=== PATIENT | female | born 1940 ===

== ENCOUNTER 2022-02-06 11:29 | Inpatient (IN) | payer MEDICARE ==
[2022-02-06] MEDS ORDERED: PROAIR HFA8.5 GM INH (12:12)
[2022-02-06] MEDS ORDERED: PERCOCET 7.5-31 EACH PO (12:13)
[2022-02-06] MEDS ORDERED: Coumadin5 MG PO (12:16)
[2022-02-06] MEDS ORDERED: LOPRESSOR50 M1 PO (12:17)
[2022-02-06] MEDS ORDERED: CO Q10200 MG PO (12:18)
[2022-02-06] MEDS ORDERED: CLARITIN10 MG PO (12:19)
[2022-02-06] MEDS ORDERED: D3-200050 MCG PO (12:19)
[2022-02-06] MEDS ORDERED: ENDOCET 5-3251 EACH PO (12:20)
[2022-02-06] MEDS ORDERED: NORVASC5 MG PO (19:00)
[2022-02-06] MEDS ORDERED: CEPHALEXIN500 M1 PO (19:01)
[2022-02-07] MEDS ORDERED: TRAZODONE50 MG PO (02:18)
[2022-02-18] MEDS ORDERED: EXELON1 EAC2 TD (12:53)
[2022-02-18] MEDS ORDERED: NAMENDA5 M1 PO (12:55)
[2022-02-18] MEDS ORDERED: REMERON SOLTAB15 MG PO (12:55)
[2022-02-18] MEDS ORDERED: RISPERDAL0.5 MG PO (12:56)
[2022-02-18] MEDS ORDERED: CATAPRES-TTS 11 EACH T (15:25)
[2022-02-18] MEDS ORDERED: ATIVAN2 MG/1 ML IM (15:28)
[2022-02-18] MEDS ORDERED: ATIVAN1 MG PO (15:30)
[2022-02-18] MEDS ORDERED: GEODON20 MG/1 ML IM (15:31)
[2022-02-18] MEDS ORDERED: MILK OF MA400 MG/5 M PO (15:31)
[2022-02-22] MEDS ORDERED: PERCOCET 7.5-31 EACH PO (12:07)
[2022-02-22] MEDS ORDERED: ATIVAN1 MG PO (12:07)
[2022-02-22] MEDS ORDERED: AMLODIPINE BESYL5 MG PO (12:07)
== END 2022-02-06 20:49 | disposition short-term general hospital (02) | DRG 885 ==
LOC: 3N 11:29
PROVIDERS: ADMIT Psychiatry & Neurology Psychiatry; ATTEND Psychiatry & Neurology Psychiatry
DX: F23 Brief psychotic disorder (principal); I48.20 Chronic atrial fibrillation, unspecified; M19.90 Unspecified osteoarthritis, unspecified site; J45.909 Unspecified asthma, uncomplicated; G47.33 Obstructive sleep apnea (adult) (pediatric); I10 Essential (primary) hypertension; K21.9 Gastro-esophageal reflux disease without esophagitis; Z96.651 Presence of right artificial knee joint; I16.0 Hypertensive urgency; K57.90 Diverticulosis of intestine, part unspecified, without perforation or abscess without bleeding; M54.41 Lumbago with sciatica, right side; Z90.710 Acquired absence of both cervix and uterus; Z88.6 Allergy status to analgesic agent; Z88.0 Allergy status to penicillin; Z88.8 Allergy status to other drugs, medicaments and biological substances

== ENCOUNTER 2022-02-06 20:40 | Inpatient (IN) | payer MEDICARE ==
[~2022-02-06] VITALS: Ht 165.1 cm; Wt 69.6 kg
[~2022-02-06 20:40] MED LIST: CEPHALEXIN500 M1 PO; CLARITIN10 MG PO; CO Q10200 MG PO; Coumadin5 MG PO; D3-200050 MCG PO; ENDOCET 5-3251 EACH PO; LOPRESSOR50 M1 PO; NORVASC5 MG PO; PERCOCET 7.5-31 EACH PO; PROAIR HFA8.5 GM INH
[2022-02-06 21:00] VITALS: BP 182/64
[2022-02-07] VITALS: BP 158/57
[2022-02-07 01:43] LABS: BASO # 0.1 10*3/uL (0.0-0.1); BASO % 0.5 % (0.0-1.0); EOS # 0.1 10*3/uL (0.0-0.4); EOS % 0.6 % (1.0-4.0); HEMATOCRIT 38.6 % (37.0-47.0); LYMPH # 1.8 10*3/uL (1.3-4.4); LYMPH % 16.8 % (27.0-41.0); MEAN CELL VOLUME 93.9 fl (81.0-99.0); MEAN CORPUSCULAR HGB 30.9 pg (27.0-31.0); MEAN CORPUSCULAR HGB CONC 32.9 g/dl (33.0-37.0); MEAN PLATELET VOLUME 9.8 fl (9.6-12.3); NEUT # 7.9 10*3/uL (2.3-7.9); NEUT % 72.7 % (47.0-73.0); PLATELET COUNT AUTOMATED 293 10*3/uL (130-400); RED BLOOD COUNT 4.11 10*6/uL (4.10-5.10); RED CELL DISTRI WIDTH 13.5 % (0-14.5); WHITE BLOOD COUNT 10.8 10*3/uL (4.8-10.8)
[2022-02-07 02:00] LABS: ALKALINE PHOSPHATASE 72 U/L (45-117); BUN 18 mg/dl (7-24); CHLORIDE 109 mmol/L (98-107); POTASSIUM 3.8 mmol/L (3.5-5.1); SGOT/AST 38 IU/L (3-35); SGPT/ALT 22 U/L (12-78); SODIUM 142 mmol/L (136-145); TOTAL PROTEIN 7.5 gm/dL (6.4-8.2)
[2022-02-07] MEDS ORDERED: TRAZODONE50 MG PO (02:18)
[2022-02-07 06:10] LABS: FREE T4 1.25 ng/dl (0.76-1.46)
[2022-02-07 06:15] LABS: THYROID STIM HORMONE (HS) 0.965 uIU/ml (0.358-4.75)
[2022-02-07 08:00] VITALS: BP 160/73
[2022-02-07 12:00] VITALS: BP 134/50
[2022-02-07 16:00] VITALS: BP 157/43
[2022-02-07 20:00] VITALS: BP 146/57
[2022-02-08] VITALS: BP 125/53
[2022-02-08 01:15] LABS: BILIRUBIN Negative (Negative); BLOOD Negative (Negative); CLARITY Clear (Clear); COLOR Yellow (Yellow); GLUCOSE Negative (Negative); KETONE 1+ (Negative); LEUKO ESTERASE Trace (Negative); NITRITE Negative (Negative); PH 5.5 (4.5-8.0); UROBILINOGEN 0.2 E.U./dl (0.0-1.0)
[2022-02-08 01:24] LABS: URINE AMPHETAMINES < 1000 (1000ng/ml); URINE BARBITURATES < 200 (200ng/ml); URINE BENZODIAZEPINES < 200 (200ng/ml); URINE CANNABINOIDS (THC) < 50 (50ng/ml); URINE COCAINE < 300 (300ng/ml); URINE METHADONE < 300 (300ng/ml); URINE OPIATES < 300 (300ng/ml)
[2022-02-08 01:28] LABS: URINE PHENCYCLIDINE < 25 (25ng/ml)
[2022-02-08 01:32] LABS: BACTERIA 1+
[2022-02-08 06:42] LABS: BASO % 0.4 % (0.0-1.0); EOS # 0.1 10*3/uL (0.0-0.4); EOS % 1.4 % (1.0-4.0); HEMATOCRIT 38.6 % (37.0-47.0); LYMPH # 2.4 10*3/uL (1.3-4.4); LYMPH % 23.6 % (27.0-41.0); MEAN CELL VOLUME 94.8 fl (81.0-99.0); MEAN CORPUSCULAR HGB 30.2 pg (27.0-31.0); MEAN CORPUSCULAR HGB CONC 31.9 g/dl (33.0-37.0); MONO # 0.9 10*3/uL (0.1-1.0); MONO % 9.4 % (3.0-9.0); NEUT # 6.5 10*3/uL (2.3-7.9); NEUT % 64.9 % (47.0-73.0); PLATELET COUNT AUTOMATED 296 10*3/uL (130-400); RED BLOOD COUNT 4.07 10*6/uL (4.10-5.10); RED CELL DISTRI WIDTH 13.8 % (0-14.5)
[2022-02-08 06:43] LABS: BUN 18 mg/dl (7-24); CHLORIDE 112 mmol/L (98-107); CREATININE 0.88 mg/dL (0.55-1.02); POTASSIUM 3.7 mmol/L (3.5-5.1); SODIUM 143 mmol/L (136-145)
[2022-02-08 08:00] VITALS: BP 157/70
[2022-02-08 12:00] VITALS: BP 128/49
[2022-02-08 16:00] VITALS: BP 132/54
[2022-02-08 20:00] VITALS: BP 146/60
[2022-02-09] VITALS: BP 162/62
[2022-02-09 06:39] LABS: BASO # 0.1 10*3/uL (0.0-0.1); BASO % 0.6 % (0.0-1.0); EOS # 0.3 10*3/uL (0.0-0.4); EOS % 3.6 % (1.0-4.0); HEMATOCRIT 37.3 % (37.0-47.0); LYMPH # 1.7 10*3/uL (1.3-4.4); LYMPH % 19.9 % (27.0-41.0); MEAN CORPUSCULAR HGB 30.5 pg (27.0-31.0); MEAN CORPUSCULAR HGB CONC 32.4 g/dl (33.0-37.0); MEAN PLATELET VOLUME 9.5 fl (9.6-12.3); MONO # 0.8 10*3/uL (0.1-1.0); MONO % 9.9 % (3.0-9.0); NEUT # 5.5 10*3/uL (2.3-7.9); NEUT % 65.8 % (47.0-73.0); PLATELET COUNT AUTOMATED 273 10*3/uL (130-400); RED BLOOD COUNT 3.97 10*6/uL (4.10-5.10); RED CELL DISTRI WIDTH 13.6 % (0-14.5); WHITE BLOOD COUNT 8.4 10*3/uL (4.8-10.8)
[2022-02-09 06:49] LABS: INTERNATIONAL NORM RATIO 1.1 (2.0-3.5)
[2022-02-09 06:58] LABS: BUN 22 mg/dl (7-24); CHLORIDE 113 mmol/L (98-107); CREATININE 0.89 mg/dL (0.55-1.02); POTASSIUM 3.6 mmol/L (3.5-5.1); SODIUM 145 mmol/L (136-145)
[2022-02-09 08:00] VITALS: BP 171/53
[2022-02-09 12:00] VITALS: BP 111/57
[2022-02-09 14:42] LABS: BASO % 0.4 % (0.0-1.0); EOS # 0.2 10*3/uL (0.0-0.4); EOS % 1.6 % (1.0-4.0); HEMATOCRIT 37.9 % (37.0-47.0); LYMPH # 1.9 10*3/uL (1.3-4.4); LYMPH % 16.8 % (27.0-41.0); MEAN CELL VOLUME 96.9 fl (81.0-99.0); MEAN CORPUSCULAR HGB 30.9 pg (27.0-31.0); MEAN CORPUSCULAR HGB CONC 31.9 g/dl (33.0-37.0); MEAN PLATELET VOLUME 9.7 fl (9.6-12.3); MONO # 0.9 10*3/uL (0.1-1.0); MONO % 8.1 % (3.0-9.0); NEUT # 8.2 10*3/uL (2.3-7.9); NEUT % 72.7 % (47.0-73.0); PLATELET COUNT AUTOMATED 282 10*3/uL (130-400); RED BLOOD COUNT 3.91 10*6/uL (4.10-5.10); RED CELL DISTRI WIDTH 13.6 % (0-14.5); WHITE BLOOD COUNT 11.3 10*3/uL (4.8-10.8)
[2022-02-09 14:57] LABS: CREATININE 1.09 mg/dL (0.55-1.02); POTASSIUM 3.9 mmol/L (3.5-5.1)
[2022-02-09 16:00] VITALS: BP 128/53
[2022-02-10 05:42] LABS: BUN 21 mg/dl (7-24); CHLORIDE 110 mmol/L (98-107); CREATININE 0.97 mg/dL (0.55-1.02); POTASSIUM 4.2 mmol/L (3.5-5.1); SODIUM 141 mmol/L (136-145)
[2022-02-10 06:27] LABS: BASO # 0.1 10*3/uL (0.0-0.1); BASO % 0.4 % (0.0-1.0); EOS % 0.1 % (1.0-4.0); HEMATOCRIT 37.8 % (37.0-47.0); LYMPH # 1.7 10*3/uL (1.3-4.4); LYMPH % 12.5 % (27.0-41.0); MEAN CELL VOLUME 95.7 fl (81.0-99.0); MEAN CORPUSCULAR HGB 30.6 pg (27.0-31.0); MEAN PLATELET VOLUME 10.3 fl (9.6-12.3); MONO # 1.2 10*3/uL (0.1-1.0); MONO % 8.3 % (3.0-9.0); NEUT # 10.9 10*3/uL (2.3-7.9); NEUT % 78.3 % (47.0-73.0); PLATELET COUNT AUTOMATED 290 10*3/uL (130-400); RED BLOOD COUNT 3.95 10*6/uL (4.10-5.10); RED CELL DISTRI WIDTH 13.6 % (0-14.5); WHITE BLOOD COUNT 13.9 10*3/uL (4.8-10.8)
[2022-02-10 08:00] VITALS: BP 158/59
[2022-02-10 09:39] LABS: INTERNATIONAL NORM RATIO 1.3 (2.0-3.5)
[2022-02-10 20:00] VITALS: BP 136/44
[2022-02-11 06:31] LABS: BASO # 0.1 10*3/uL (0.0-0.1); BASO % 0.5 % (0.0-1.0); EOS # 0.1 10*3/uL (0.0-0.4); EOS % 0.8 % (1.0-4.0); HEMATOCRIT 39.2 % (37.0-47.0); LYMPH # 1.7 10*3/uL (1.3-4.4); LYMPH % 15.8 % (27.0-41.0); MEAN CELL VOLUME 94.5 fl (81.0-99.0); MEAN CORPUSCULAR HGB 31.1 pg (27.0-31.0); MEAN CORPUSCULAR HGB CONC 32.9 g/dl (33.0-37.0); MEAN PLATELET VOLUME 9.6 fl (9.6-12.3); MONO # 1.1 10*3/uL (0.1-1.0); MONO % 9.8 % (3.0-9.0); NEUT # 7.8 10*3/uL (2.3-7.9); NEUT % 72.5 % (47.0-73.0); PLATELET COUNT AUTOMATED 290 10*3/uL (130-400); RED BLOOD COUNT 4.15 10*6/uL (4.10-5.10); RED CELL DISTRI WIDTH 13.6 % (0-14.5); WHITE BLOOD COUNT 10.7 10*3/uL (4.8-10.8)
[2022-02-11 06:47] LABS: ALKALINE PHOSPHATASE 71 U/L (45-117); BUN 20 mg/dl (7-24); CHLORIDE 111 mmol/L (98-107); CREATININE 0.77 mg/dL (0.55-1.02); POTASSIUM 3.9 mmol/L (3.5-5.1); SGOT/AST 22 IU/L (3-35); SGPT/ALT 25 U/L (12-78); SODIUM 144 mmol/L (136-145); TOTAL PROTEIN 7.7 gm/dL (6.4-8.2)
[2022-02-11 07:08] LABS: INTERNATIONAL NORM RATIO 1.4 (2.0-3.5)
[2022-02-11 08:00] VITALS: BP 195/89
[2022-02-11 12:00] VITALS: BP 116/82
[2022-02-11 20:00] VITALS: BP 158/59
[2022-02-12] VITALS: BP 179/71
[2022-02-12 01:58] LABS: BILIRUBIN Negative (Negative); BLOOD 1+ (Negative); CLARITY Clear (Clear); COLOR Yellow (Yellow); GLUCOSE Negative (Negative); KETONE 2+ (Negative); LEUKO ESTERASE Negative (Negative); NITRITE Negative (Negative); SPECIFIC GRAVITY 1.015 (1.001-1.030); UROBILINOGEN 0.2 E.U./dl (0.0-1.0)
[2022-02-12 02:14] LABS: BACTERIA TRACE; RBC 16-20 rbc/hpf (0-2)
[2022-02-12 06:46] LABS: BASO # 0.1 10*3/uL (0.0-0.1); BASO % 0.7 % (0.0-1.0); EOS # 0.1 10*3/uL (0.0-0.4); EOS % 1.1 % (1.0-4.0); HEMATOCRIT 37.8 % (37.0-47.0); LYMPH # 1.5 10*3/uL (1.3-4.4); LYMPH % 14.1 % (27.0-41.0); MEAN CELL VOLUME 93.8 fl (81.0-99.0); MEAN CORPUSCULAR HGB 30.3 pg (27.0-31.0); MEAN CORPUSCULAR HGB CONC 32.3 g/dl (33.0-37.0); MEAN PLATELET VOLUME 9.6 fl (9.6-12.3); MONO % 9.3 % (3.0-9.0); NEUT # 8.2 10*3/uL (2.3-7.9); NEUT % 74.3 % (47.0-73.0); PLATELET COUNT AUTOMATED 301 10*3/uL (130-400); RED BLOOD COUNT 4.03 10*6/uL (4.10-5.10); RED CELL DISTRI WIDTH 13.3 % (0-14.5)
[2022-02-12 06:51] LABS: BUN 22 mg/dl (7-24); CHLORIDE 111 mmol/L (98-107); CREATININE 0.76 mg/dL (0.55-1.02); POTASSIUM 3.4 mmol/L (3.5-5.1); SGOT/AST 21 IU/L (3-35); SGPT/ALT 22 U/L (12-78); SODIUM 145 mmol/L (136-145); TOTAL PROTEIN 7.5 gm/dL (6.4-8.2)
[2022-02-12 06:52] LABS: ALKALINE PHOSPHATASE 70 U/L (45-117)
[2022-02-12 08:00] VITALS: BP 186/60
[2022-02-12 12:00] VITALS: BP 160/59
[2022-02-12 16:00] VITALS: BP 179/68
[2022-02-12 20:00] VITALS: BP 152/71
[2022-02-13 06:58] LABS: BASO % 0.4 % (0.0-1.0); EOS # 0.1 10*3/uL (0.0-0.4); EOS % 1.4 % (1.0-4.0); HEMATOCRIT 39.3 % (37.0-47.0); LYMPH # 1.9 10*3/uL (1.3-4.4); LYMPH % 18.3 % (27.0-41.0); MEAN CELL VOLUME 93.1 fl (81.0-99.0); MEAN CORPUSCULAR HGB 30.1 pg (27.0-31.0); MEAN CORPUSCULAR HGB CONC 32.3 g/dl (33.0-37.0); MEAN PLATELET VOLUME 9.6 fl (9.6-12.3); MONO # 1.1 10*3/uL (0.1-1.0); MONO % 10.7 % (3.0-9.0); NEUT % 68.9 % (47.0-73.0); PLATELET COUNT AUTOMATED 315 10*3/uL (130-400); RED BLOOD COUNT 4.22 10*6/uL (4.10-5.10); RED CELL DISTRI WIDTH 13.2 % (0-14.5); WHITE BLOOD COUNT 10.1 10*3/uL (4.8-10.8)
[2022-02-13 07:23] LABS: BUN 22 mg/dl (7-24); CHLORIDE 110 mmol/L (98-107); CREATININE 0.78 mg/dL (0.55-1.02); POTASSIUM 3.1 mmol/L (3.5-5.1); SODIUM 144 mmol/L (136-145)
[2022-02-13 08:00] VITALS: BP 157/61
[2022-02-13 12:00] VITALS: BP 159/86
[2022-02-13] MEDS ORDERED: RIVASTIGMINE1 EACH T (13:58)
[2022-02-13] MEDS ORDERED: CLOPIDOGREL75 MG PO (13:58)
[2022-02-13 16:00] VITALS: BP 170/88
[2022-02-13 20:00] VITALS: BP 178/82
== END 2022-02-13 21:29 | DRG 64 ==
LOC: 4E 20:40
PROVIDERS: Internal Medicine; Student in an Organized Health Care Education/Training Program; ADMIT Internal Medicine; ATTEND Internal Medicine
DX: I63.9 Cerebral infarction, unspecified (principal); G93.41 Metabolic encephalopathy; I48.20 Chronic atrial fibrillation, unspecified; F23 Brief psychotic disorder; I16.1 Hypertensive emergency; K21.9 Gastro-esophageal reflux disease without esophagitis; I10 Essential (primary) hypertension; J45.909 Unspecified asthma, uncomplicated; K57.90 Diverticulosis of intestine, part unspecified, without perforation or abscess without bleeding; G89.29 Other chronic pain; M54.41 Lumbago with sciatica, right side; R29.700 NIHSS score 0; M54.42 Lumbago with sciatica, left side; G47.33 Obstructive sleep apnea (adult) (pediatric); E87.8 Other disorders of electrolyte and fluid balance, not elsewhere classified; M19.90 Unspecified osteoarthritis, unspecified site; Z96.651 Presence of right artificial knee joint; E83.41 Hypermagnesemia; R73.9 Hyperglycemia, unspecified; Z79.899 Other long term (current) drug therapy; Z79.01 Long term (current) use of anticoagulants; Z88.0 Allergy status to penicillin; Z88.6 Allergy status to analgesic agent; Z88.8 Allergy status to other drugs, medicaments and biological substances; Z90.710 Acquired absence of both cervix and uterus; Z90.89 Acquired absence of other organs